=== PATIENT | male | born 1940 | race Caucasian/White ===

== ENCOUNTER 2023-12-25 07:39 | Emergency (ER) | payer MEDICARE, BC ==
[~2023-12-25] VITALS: Ht 172.7 cm; Wt 83.5 kg
[~2023-12-25 07:39] MED LIST: ASPI-605 PO
[2023-12-25] MEDS ORDERED: SULF1TAB48 PO (07:59)
[2023-12-25] MEDS ORDERED: LIDOCAINE HCL 1% 20 ML VIAL ONE (08:13)
[2023-12-25] MEDS: LIDOCAINE HCL 1% 20 ML VIAL TP ONE (08:52)
[2023-12-25] MEDS ORDERED: NEOMY/BACITRA/POLYMYXIN B OINT UD PACKET TP ONE (08:53)
[2023-12-25] MEDS: NEOMY/BACITRA/POLYMYXIN B OINT UD PACKET TP ONE (08:53)
[2023-12-25 09:23] VITALS: BP 110/62; O2SAT 98
== END 2023-12-25 09:10 | disposition home or self-care (01) ==
LOC: ER 08:00
DX: L02.214 Cutaneous abscess of groin (principal); I10 Essential (primary) hypertension; Z79.82 Long term (current) use of aspirin; Z79.899 Other long term (current) drug therapy
CPT/HCPCS: A4606; A4663; J3490

== ENCOUNTER 2023-12-29 08:40 | Emergency (ER) | payer MEDICARE, BC ==
[~2023-12-29 08:40] MED LIST changes: +NEOMY/BACITRA/POLYMYXIN B OINT UD PACKET TP ONE; +SULF1TAB48 PO
== END 2023-12-29 09:20 | disposition home or self-care (01) ==
LOC: ER 08:40
DX: Z48.00 Encounter for change or removal of nonsurgical wound dressing (principal); Z53.21 Procedure and treatment not carried out due to patient leaving prior to being seen by health care provider